=== PATIENT | female | born 1980 ===

== ENCOUNTER 2016-12-23 02:49 | Emergency (ER) | payer SELFPAY ==
[2016-12-23 03:03] VITALS: BP 125/83; PULSE 98; RESP 18; TEMP 97.8; O2SAT 99
--- NOTE | 2016-12-23 03:13 | C.PDOC ---
History Of Present Illness 36 y/o female presents to ED for evaluation of dental pain for 2 days. Patient reports, pain is localized over Right lower tooth,worse when chewing, non- radiating . Otherwise, pt denies fever, chills, recent dental procedure, drooling, dysphagia, dyspnea, trismus, face swelling, CP, SOB, or any other active complaints. Ambulate to Ed for evaluation, not in any apparent distress. Time Seen by Provider: 12/23/16 02:53 Chief Complaint (Nursing): Dental Pain History Per: Patient History/Exam Limitations: no limitations Onset/Duration Of Symptoms: Days Current Symptoms Are (Timing): Still Present Quality: Positive for: "Pain" Past Medical History Reviewed: Historical Data, Nursing Documentation, Vital Signs Vital Signs: Last Vital Signs Temp 97.8 F 12/23/16 03:01 Pulse 98 H 12/23/16 03:01 Resp 18 12/23/16 03:01 BP 125/83 12/23/16 03:01 Pulse Ox 99 12/23/16 03:48 - Medical History PMH: No Chronic Diseases Surgical History: No Surg Hx Family History: States: No Known Family Hx - Social History Hx Alcohol Use: Yes Hx Substance Use: No - Immunization History Hx Tetanus Toxoid Vaccination: No Hx Influenza Vaccination: No Hx Pneumococcal Vaccination: No Review Of Systems Except As Marked, All Systems Reviewed And Found Negative. Constitutional: Negative for: Fever ENT: Positive for: Mouth Pain (Dental). Negative for: Mouth Swelling, Throat Swelling Physical Exam - Physical Exam Appears: Non-toxic, No Acute Distress Skin: Warm, Dry, No Rash Head: Normacephalic Eye(s): bilateral: PERRL Ear(s): Bilateral: Normal Nose: No Flaring, No Discharge Oral Mucosa: Moist, No Drooling, No Trismus Tongue: Normal Appearing, No Swelling Lips: Normal Appearing, No Swelling Teeth: Caries (Large to right 2nd lower molar) Gingiva: Erythema (Right lower 2nd molar), Swelling, Tender Throat: No Erythema, No Drooling, Other (uvula midline, no edema) Lymphatic: No Adenopathy Cardiovascular: Rhythm Regular Respiratory: No Decreased Breath Sounds, No Accessory Muscle Use, No Stridor, No Wheezing Extremity: No Pedal Edema Neurological/Psych: Oriented x3, Normal Speech ED Course And Treatment - Laboratory Results Urine POC: Negative O2 Sat by Pulse Oximetry: 99 (RA) Pulse Ox Interpretation: Normal Progress Note: On re-eval, pt is afebrile, hemodynamicaly stable. Non-toxic. Tolerate PO well in ED. Neck: Supple, (-) meningeal sign. ENT: exam c/w Right lower toothache r/o early abscess. No facial edema, no drooling, no trismus, no cellulitis. uvula midine, no edema. Lungs: CTA B/L, BS equal B/L. Pt denies any known allergy to medication including penicillin. Pt advised on course of ds. re. to f/u with Dentist in 2-3 days for re-evaluation. return to ED if any worsening or new changes. Disposition Counseled Patient/Family Regarding: Diagnosis, Need For Followup, Rx Given - Disposition Referrals: [facility] [Provider Group] [facility] [Provider Group] Disposition: HOME/ ROUTINE Disposition Time: 03:36 Condition: STABLE Additional Instructions: Take medication as prescribed Follow up with dentist in 2-3 days for re-evaluation. Return to ED if any worsening or new changes. 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 - Scribe Statement The provider has reviewed the documentation as recorded by the Carly Alicea All medical record entries made by the Carly were at my direction and personally dictated by me. I have reviewed the chart and agree that the record accurately reflects my personal performance of the history, physical exam, medical decision making, and the department course for this patient. I have also personally directed, reviewed, and agree with the discharge instructions and disposition.
== END 2016-12-23 03:53 | disposition home or self-care (01) ==
LOC: C.ER 02:49
DX: K04.7 Periapical abscess without sinus (principal)

== ENCOUNTER 2017-01-07 18:38 | Emergency (ER) | payer OTHER ==
[2017-01-07 18:59] VITALS: BMI 26.5
[2017-01-07 19:04] VITALS: RESP 18; TEMP 98
[2017-01-07] MEDS ORDERED: Silver Sulfadiazine 1% Cream (20 gm) ONE (19:11)
[2017-01-07] MEDS ORDERED: Silver Sulfadiazine 1% Cream (20 gm) TOP STA (19:25)
[2017-01-07] MEDS ORDERED: Naproxen 550 mg Tab PO STA (19:25)
[2017-01-07] MEDS ORDERED: Naproxen 550 mg Tab PO ONE (19:29)
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
[2017-01-07 19:54] VITALS: BP 116/71; PULSE 75
[2017-01-07 21:33] VITALS: O2SAT 100
== END 2017-01-07 20:05 | disposition home or self-care (01) ==
LOC: SUPCPDRO 18:38 → C.ER 18:38
DX: T22.10XA Burn of first degree of shoulder and upper limb, except wrist and hand, unspecified site, initial encounter (principal); T21.11XA Burn of first degree of chest wall, initial encounter; T20.17XA Burn of first degree of neck, initial encounter; X10.2XXA Contact with fats and cooking oils, initial encounter; Y93.G3 Activity, cooking and baking